=== PATIENT | female | born 1985 | race Caucasian/White ===

== ENCOUNTER 2017-01-14 18:18 | Emergency (ER) | payer BC, OTHER ==
--- NOTE | 2017-01-14 19:22 | EDM.PDOC ---
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 Over the last 2 days she's developed some spotting, today has become heavier vaginal bleeding. She is complaining of lower back cramping and right lower quadrant abdominal cramping. No fever, though she has felt chilled. Otherwise, no abdominal pain, nausea or vomiting. No chest pain, shortness of breath or difficulty breathing. She has felt constipated lately which is normal for her when she is . No diarrhea or blood in her stools. LC 1. Has not yet been seen by OB.] Review of systems: As per history of present illness and below otherwise all systems reviewed and negative. Past medical history: As per history of present illness and as reviewed below otherwise noncontributory. Surgical history: As per history of present illness and as reviewed below otherwise noncontributory. Social history: No reported history of drug or alcohol abuse. Family history: As per history of present illness and as reviewed below otherwise noncontributory. Physical exam: HEENT: Atraumatic, normocephalic. Lungs: Clear to auscultation, breath sounds equal bilaterally. Heart: S1S2, regular rate and rhythm. Abdomen: Bowel sounds are normoactiv. Abdome is soft, nondistended, nontender. No masses, guarding or rebound. Negative for costovertebral tenderness. Pelvis: Stable nontender. Genitourinary: Deferred. Rectal: Deferred. Extremities: Atraumatic, negative for cords or calf pain. Neurovascular unremarkable. Neuro: Awake, alert, oriented. Motor and sensory unremarkable throughout. Exam nonfocal. Diagnostics: [pelvic U/S, quantitative Hcg, qualitative Hcg, CBC, ABO/Rh, UA ] Impression: [viable twin , estimated to be 6 1/2 gestation] Plan: [Patient is advised of normal lab and the results of her ultrasound. Encouraged patient to follow up with an audioprosthologist in the next couple of days. Continue to monitor symptoms. Return to ER if worsening. She is in agreement with today' s plan. All of her questions are answered and concerns are addressed.] Definitive disposition and diagnosis as appropriate pending reevaluation and review of above. Low Back and Right Pelvic Pain Score (Numeric/FACES): 5 - Related Data Allergies Allergy/AdvReac Type Severity Reaction Status Date / Time amoxicillin [Amoxicillin] Allergy Rash Verified 01/14/17 18:45 Penicillins Allergy Cannot Verified 01/14/17 18:45 Remember Home Meds: Home Meds . [No Known Home Meds] 01/14/17 [History] Past Medical History - Past Health History Medical/Surgical History: Denies Medical/Surgical History Social & Family History - Family History Family Medical History: Noncontributory - Tobacco Use Smoking Status *Q: Never Smoker Years of Tobacco use: 3 Used Tobacco, but Quit: Yes Month Tobacco Last Used: 03/2013 Second Hand Smoke Exposure: No - Recreational Drug Use Recreational Drug Use: No ED ROS GENERAL - Review of Systems Review Of Systems: ROS reveals no pertinent complaints other than HPI. ED EXAM - Physical Exam Exam: See Below Course - Vital Signs Last Recorded V/S: Last Vital Signs Temp 98.1 F 01/14/17 21:18 Pulse 70 01/14/17 21:18 Resp 16 01/14/17 21:18 BP 112/70 01/14/17 21:18 Pulse Ox 97 01/14/17 21:18 - Orders/Labs/Meds Orders: Active Orders 24 hr Category Date Time Status OB 1st Tri Sgl 1st Gest [US] Stat Exams 01/14/17 18:53 Taken Labs: Laboratory Tests 01/14/17 01/14/17 01/14/17 Range/Units 18:43 18:43 19:00 WBC (4.0-11.0) K/uL RBC (4.30-5.90) M/uL Hgb (12.0-16.0) g/dL Hct (36.0-46.0) % MCV (80.0-98.0) fL MCH (27.0-32.0) pg MCHC (31.0-37.0) g/dL RDW Std Deviation (28.0-62.0) fl RDW Coeff of Dandy (11.0-15.0) % Plt Count (150-400) K/uL MPV (7.40-12.00) fL Neut % (Auto) (48.0-80.0) % Lymph % (Auto) (16.0-40.0) % [place] % (Auto) (0.0-15.0) % Eos % (Auto) (0.0-7.0) % Baso % (Auto) (0.0-1.5) % Neut # (Auto) (1.4-5.7) K/uL Lymph # (Auto) (0.6-2.4) K/uL [place] # (Auto) (0.0-0.8) K/uL Eos # (Auto) (0.0-0.7) K/uL Baso # (Auto) (0.0-0.1) K/uL Nucleated RBC % /100WBC Nucleated RBCs # K/uL HCG, Quant mIU/mL Urine Color YELLOW Urine Appearance CLEAR Urine pH 6.5 (5.0-8.0) Ur Specific [place] 1.010 (1.001-1.035) Urine Protein NEGATIVE (NEGATIVE) mg/dL Urine Glucose (UA) NEGATIVE (NEGATIVE) mg/dL Urine Ketones NEGATIVE (NEGATIVE) mg/dL Urine Occult Blood MODERATE (NEGATIVE) Urine Nitrite NEGATIVE (NEGATIVE) Urine Bilirubin NEGATIVE (NEGATIVE) Urine Urobilinogen 0.2 (<2.0) EU/dL Ur Leukocyte Esterase TRACE (NEGATIVE) Urine RBC 0-2 (0-2/HPF) Urine WBC 1-2 (0-5/HPF) Ur Epithelial Cells RARE (NONE-FEW) Urine Bacteria FEW (NEGATIVE) Urine HCG, Qual POSITIVE (NEGATIVE) Blood Type O POSITIVE 01/14/17 01/14/17 Range/Units 19:00 19:00 WBC 11.33 H (4.0-11.0) K/uL RBC 4.08 L (4.30-5.90) M/uL Hgb 13.3 (12.0-16.0) g/dL Hct 39.4 (36.0-46.0) % MCV 96.6 (80.0-98.0) fL MCH 32.6 H (27.0-32.0) pg MCHC 33.8 (31.0-37.0) g/dL RDW Std Deviation 42.5 (28.0-62.0) fl RDW Coeff of Dandy 12 (11.0-15.0) % Plt Count 254 (150-400) K/uL MPV 9.10 (7.40-12.00) fL Neut % (Auto) 73.7 (48.0-80.0) % Lymph % (Auto) 18.3 (16.0-40.0) % [place] % (Auto) 6.1 (0.0-15.0) % Eos % (Auto) 1.6 (0.0-7.0) % Baso % (Auto) 0.3 (0.0-1.5) % Neut # (Auto) 8.4 H (1.4-5.7) K/uL Lymph # (Auto) 2.1 (0.6-2.4) K/uL [place] # (Auto) 0.7 (0.0-0.8) K/uL Eos # (Auto) 0.2 (0.0-0.7) K/uL Baso # (Auto) 0.0 (0.0-0.1) K/uL Nucleated RBC % 0.0 /100WBC Nucleated RBCs # 0 K/uL HCG, Quant 96680.1 mIU/mL Urine Color Urine Appearance Urine pH (5.0-8.0) Ur Specific [place] (1.001-1.035) Urine Protein (NEGATIVE) mg/dL Urine Glucose (UA) (NEGATIVE) mg/dL Urine Ketones (NEGATIVE) mg/dL Urine Occult Blood (NEGATIVE) Urine Nitrite (NEGATIVE) Urine Bilirubin (NEGATIVE) Urine Urobilinogen (<2.0) EU/dL Ur Leukocyte Esterase (NEGATIVE) Urine RBC (0-2/HPF) Urine WBC (0-5/HPF) Ur Epithelial Cells (NONE-FEW) Urine Bacteria (NEGATIVE) Urine HCG, Qual (NEGATIVE) Blood Type Departure - Departure Time of Disposition: 21:07 Disposition: Home, Self-Care 01 Condition: Good Clinical Impression: Twin Qualifiers: Multiple gestation type: dichorionic and diamniotic Trimester: first trimester Qualified Code(s): O30.041 - Twin , dichorionic/diamniotic, first trimester - Discharge Information Instructions: Multiple Referrals: PCP,None [Primary Care Provider] - Forms: ED Department Discharge Additional Instructions: The following information is given to patients seen in the emergency department who are being discharged to home. This information is to outline your options for follow-up care. We provide all patients seen in our emergency department with a follow-up referral. The need for follow-up, as well as the timing and circumstances, are variable depending upon the specifics of your emergency department visit. If you don't have a primary care physician on staff, we will provide you with a referral. We always advise you to contact your personal physician following an emergency department visit to inform them of the circumstance of the visit and for follow-up with them and/or the need for any referrals to a consulting specialist. The emergency department will also refer you to a specialist when appropriate. This referral assures that you have the opportunity for follow-up care with a specialist. All of these measure are taken in an effort to provide you with optimal care, which includes your follow-up. Under all circumstances we always encourage you to contact your private physician who remains a resource for coordinating your care. When calling for follow-up care, please make the office aware that this follow-up is from your recent emergency room visit. If for any reason you are refused follow-up, please contact the [facility] emergency department at and asked to speak to the emergency department charge nurse. [facility] Primary care - Women's Health [address] [place] [id number] [facility] [address] [place] [id number] Call first thing Monday morning to schedule an appointment at the clinic listed above. You have been diagnosed with a twin . Return to ER as needed as discussed. - My Orders Last 24 Hours: My Active Orders 01/14/17 18:53 OB 1st Tri Sgl 1st Gest [US] Stat - Assessment/Plan Last 24 Hours: My Active Orders 01/14/17 18:53 OB 1st Tri Sgl 1st Gest [US] Stat
[2017-01-14 21:22] VITALS: BP 112/70
--- NOTE | 2017-01-16 12:32 | US ---
EXAM DATE: 01/14/17 PATIENT'S AGE: 31 Patient: FLORY PRICE Facility: [place], [place] Site . Site : 1985 Study: US OB Pelvis [id number]/12/2017 8:19:37 PM Ordering Physician: Doctor Robles Final Report: HISTORY: Vaginal bleeding, . TECHNIQUE: Transabdominal and transvaginal pelvic ultrasound. COMPARISON: No prior. FINDINGS: There is a living dichorionic, diamniotic twin gestation. - [place]-rump length of fetus A is 6.3 mm which correlates with a 6 week, 4 day gestation. DAFNE based on this measurement is 09/05/2017. heart rate 133 beats per minute. Normal-appearing yolk sac. - [place]-rump length of fetus B is 5.7 mm which correlates with a 6 week, 3 day gestation. heart rate is 129 beats per minute. Normal-appearing yolk sac. - There is no subchorionic hemorrhage. No adnexal mass. Both ovaries appear unremarkable. IMPRESSION: 1. Living dichorionic, diamniotic twin gestation. 2. No complication. Dictated by Bart Morrell MD @ 01/14/2017 8:41:04 PM Dictated by: Bart Morrell MD @ 01/14/2017 20:41:15 (Electronic Signature) Report Signed by Proxy. [facility]ATRIC CENTERAsa
== END 2017-01-14 21:18 | disposition home or self-care (01) ==
LOC: MW.ED 18:18
DX: O30.041 Twin pregnancy, dichorionic/diamniotic, first trimester (principal); M54.5 Low back pain; R10.31 Right lower quadrant pain; Z3A.08 8 weeks gestation of pregnancy; Z88.1 Allergy status to other antibiotic agents; Z88.0 Allergy status to penicillin
CPT/HCPCS: 36415; 76801; 76801-26; 81001; 81025; 84702; 85025; 86900; 86901; 99282; 99284-25

== ENCOUNTER 2020-12-29 13:10 | Emergency (ER) | payer SELFPAY ==
[2020-12-29] MEDS ORDERED: Sodium Chloride 0.9% 1,000 ML IV ONE (13:45)
[2020-12-29] MEDS ORDERED: Sodium Chloride 0.9% 10 ML Syringe FLUSH PRN (13:45)
[2020-12-29] MEDS ORDERED: Sodium Chloride 0.9% 2.5 ML Syringe FLUSH PRN (13:45)
--- NOTE | 2020-12-29 13:48 | EDM.PDOC ---
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 , LMP 11/02/20 no ultrasound yet. Located in lower abdomen, mostly in left, cramping sensation, but also a pulling/tighntess in right side. No vaginal bleeding but is having some discharge. Single partner, no concern for risk of STI. PMH: , anxiety PSH: none SOC: no tobacco - Related Data Allergies Allergy/AdvReac Type Severity Reaction Status Date / Time amoxicillin [Amoxicillin] Allergy Rash Verified 12/29/20 13:33 Penicillins Allergy Cannot Verified 12/29/20 13:33 Remember Home Meds: Home Meds . 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: Social & Family History - Family History Family Medical History: No Pertinent Family History - Tobacco Use Tobacco Use Status *Q: Never Tobacco User - Recreational Drug Use Recreational Drug Use: No ED ROS GENERAL - Review of Systems Review Of Systems: See Below Constitutional: Denies: Fever Respiratory: Denies: Shortness of Breath Cardiovascular: Denies: Chest Pain GI/Abdominal: Reports: Abdominal Pain ED EXAM - Physical Exam Exam: See Below General Appearance: Alert, WD/WN, No Apparent Distress Throat/Mouth: Normal Inspection Head: Atraumatic, Normocephalic Neck: Normal Inspection, Supple Respiratory/Chest: No Respiratory Distress Cardiovascular: Regular Rate, Rhythm GI/Abdominal Exam: Soft, Non-Tender, No Distention (Female) Exam: Normal External Exam, Vaginal Discharge (scant thin whitish/clear discharge), Other (os closed ). No: Products of Conception, Tissue Present in Cervix/Vagina Course - Vital Signs Last Recorded V/S: Last Vital Signs Temp 98.4 F 12/29/20 13:30 Pulse 96 12/29/20 13:30 Resp 16 12/29/20 13:30 BP 123/81 12/29/20 13:30 Pulse Ox 98 12/29/20 13:30 - Orders/Labs/Meds Orders: Active Orders 24 hr Category Date Time Status Sodium Chloride 0.9% [Saline Flush] Med 12/29/20 13:45 Active 10 ml FLUSH ASDIRECTED PRN Sodium Chloride 0.9% [Saline Flush] Med 12/29/20 13:45 Active 2.5 ml FLUSH ASDIRECTED PRN Saline Lock Insert [OM.PC] Stat Oth 12/29/20 13:45 Ordered Medication Orders Sodium Chloride (Sodium Chloride 0.9% 10 Ml Syringe) 10 ml FLUSH ASDIRECTED PRN PRN Reason: Keep Vein Open Last Admin: 12/29/20 13:57 Dose: 10 ml Documented by: PRAVEENA Sodium Chloride (Sodium Chloride 0.9% 2.5 Ml Syringe) 2.5 ml FLUSH ASDIRECTED PRN PRN Reason: Keep Vein Open Last Admin: 12/29/20 13:57 Dose: 2.5 ml Documented by: PRAVEENA Labs: Laboratory Tests 12/29/20 12/29/20 12/29/20 Range/Units 14:00 14:00 14:00 WBC 10.93 (4.0-11.0) K/uL RBC 4.05 L (4.30-5.90) M/uL Hgb 13.8 (12.0-16.0) g/dL Hct 39.0 (36.0-46.0) % MCV 96.3 (80.0-98.0) fL MCH 34.1 H (27.0-32.0) pg MCHC 35.4 (31.0-37.0) g/dL RDW Std Deviation 43.1 (28.0-62.0) fl RDW Coeff of Dandy 12 (11.0-15.0) % Plt Count 257 (150-400) K/uL MPV 9.00 (7.40-12.00) fL Neut % (Auto) 79.7 (48.0-80.0) % Lymph % (Auto) 12.4 L (16.0-40.0) % [place] % (Auto) 6.6 (0.0-15.0) % Eos % (Auto) 1.0 (0.0-7.0) % Baso % (Auto) 0.3 (0.0-1.5) % Neut # (Auto) 8.7 H (1.4-5.7) K/uL Lymph # (Auto) 1.4 (0.6-2.4) K/uL [place] # (Auto) 0.7 (0.0-0.8) K/uL Eos # (Auto) 0.1 (0.0-0.7) K/uL Baso # (Auto) 0.0 (0.0-0.1) K/uL Nucleated RBC % 0.0 /100WBC Nucleated RBCs # 0 K/uL Sodium 134 L (136-145) mmol/L Potassium 3.9 (3.5-5.1) mmol/L Chloride 100 (98-107) mmol/L Carbon Dioxide 23.6 (21.0-32.0) mmol/L BUN 14 (7.0-18.0) mg/dL Creatinine 0.9 (0.6-1.0) mg/dL Est Cr Clr Drug Dosing 72.17 mL/min Estimated GFR (MDRD) > 60.0 ml/min Glucose 93 (74-106) mg/dL Calcium 9.0 (8.5-10.1) mg/dL Total Bilirubin 0.3 (0.2-1.0) mg/dL AST 26 (15-37) IU/L ALT 29 (14-63) IU/L Alkaline Phosphatase 71 (46-116) U/L Total Protein 7.4 (6.4-8.2) g/dL Albumin 4.0 (3.4-5.0) g/dL Globulin 3.4 (2.6-4.0) g/dL Albumin/Globulin Ratio 1.2 (0.9-1.6) HCG, Quant 77769.0 mIU/mL Urine Color Urine Appearance Urine pH (5.0-8.0) Ur Specific [place] (1.001-1.035) Urine Protein (NEGATIVE) mg/dL Urine Glucose (UA) (NEGATIVE) mg/dL Urine Ketones (NEGATIVE) mg/dL Urine Occult Blood (NEGATIVE) Urine Nitrite (NEGATIVE) Urine Bilirubin (NEGATIVE) Urine Urobilinogen (<2.0) EU/dL Ur Leukocyte Esterase (NEGATIVE) Farnaz species DNA (NEGATIVE) Gardnerella DNA Probe (NEGATIVE) Trichomonas DNA Probe (NEGATIVE) Blood Type 12/29/20 12/29/2012/29/21 Range/Units 14:00 14:00 15:37 WBC (4.0-11.0) K/uL RBC (4.30-5.90) M/uL Hgb (12.0-16.0) g/dL Hct (36.0-46.0) % MCV (80.0-98.0) fL MCH (27.0-32.0) pg MCHC (31.0-37.0) g/dL RDW Std Deviation (28.0-62.0) fl RDW Coeff of Dandy (11.0-15.0) % Plt Count (150-400) K/uL MPV (7.40-12.00) fL Neut % (Auto) (48.0-80.0) % Lymph % (Auto) (16.0-40.0) % [place] % (Auto) (0.0-15.0) % Eos % (Auto) (0.0-7.0) % Baso % (Auto) (0.0-1.5) % Neut # (Auto) (1.4-5.7) K/uL Lymph # (Auto) (0.6-2.4) K/uL [place] # (Auto) (0.0-0.8) K/uL Eos # (Auto) (0.0-0.7) K/uL Baso # (Auto) (0.0-0.1) K/uL Nucleated RBC % /100WBC Nucleated RBCs # K/uL Sodium (136-145) mmol/L Potassium (3.5-5.1) mmol/L Chloride (98-107) mmol/L Carbon Dioxide (21.0-32.0) mmol/L BUN (7.0-18.0) mg/dL Creatinine (0.6-1.0) mg/dL Est Cr Clr Drug Dosing mL/min Estimated GFR (MDRD) ml/min Glucose (74-106) mg/dL Calcium (8.5-10.1) mg/dL Total Bilirubin (0.2-1.0) mg/dL AST (15-37) IU/L ALT (14-63) IU/L Alkaline Phosphatase (46-116) U/L Total Protein (6.4-8.2) g/dL Albumin (3.4-5.0) g/dL Globulin (2.6-4.0) g/dL Albumin/Globulin Ratio (0.9-1.6) HCG, Quant mIU/mL Urine Color YELLOW Urine Appearance CLEAR Urine pH 6.0 (5.0-8.0) Ur Specific [place] 1.020 (1.001-1.035) Urine Protein NEGATIVE (NEGATIVE) mg/dL Urine Glucose (UA) NEGATIVE (NEGATIVE) mg/dL Urine Ketones 15 H (NEGATIVE) mg/dL Urine Occult Blood NEGATIVE (NEGATIVE) Urine Nitrite NEGATIVE (NEGATIVE) Urine Bilirubin NEGATIVE (NEGATIVE) Urine Urobilinogen 0.2 (<2.0) EU/dL Ur Leukocyte Esterase NEGATIVE (NEGATIVE) [place]arn[place] species DNA NEGATIVE (NEGATIVE) [place]rella DNA Probe NEGATIVE (NEGATIVE) Trichomonas DNA Probe NEGATIVE (NEGATIVE) Blood Type O POSITIVE Meds: Medications Generic Name Dose Route Start Last Admin Trade Name Freq PRN Reason Stop Dose Admin Sodium Chloride 10 ml 12/29/20 13:45 12/29/20 13:57 Sodium Chloride 0.9% 10 Ml Syringe FLUSH 10 ml ASDIRECTED PRN Administration Keep Vein Open Sodium Chloride 2.5 ml 12/29/20 13:45 12/29/20 13:57 Sodium Chloride 0.9% 2.5 Ml Syringe FLUSH 2.5 ml ASDIRECTED PRN Administration Keep Vein Open Discontinued Medications Generic Name Dose Route Start Last Admin Trade Name Freq PRN Reason Stop Dose Admin Sodium Chloride 1,000 mls @ 999 mls/hr 12/29/20 13:45 12/29/20 13:57 Normal Saline IV 12/29/20 14:45 999 mls/hr .Bolus ONE Administration - Re-Assessments/Exams Free Text/Narrative Re-Assessment/Exam: 12/29/20 16:15 results discussed with patient and need for followup. Discussed return instructions. She agrees with plan. 12/29/20 16:[address] Perez discussed with patient. She agrees with plan. Departure - Departure Time of Disposition: 16:17 Disposition: Home, Self-Care 01 Clinical Impression: Intrauterine , Subchorionic hematoma in first trimester - Discharge Information Instructions: First Trimester of , [place], Care, How a Baby Grows During , Questions to Ask Your Health Care Provider During , Subchorionic Hematoma Referrals: Ivana Perez MD [Physician] - 2 Days Forms: ED Department Discharge Sepsis Event Note (ED) - Evaluation Sepsis Screening Result: No Definite Risk - Focused Exam Vital Signs: Vital Signs Temp Pulse Resp BP Pulse Ox 12/29/20 13:30 98.4 F 96 16 123/81 98 ED Communication - ED Communication Date/Time Date: 12/29/20 Time Called: 16:16 - Discussed Case With (1) Discussed Case With (1): Outpatient Provider Person/s Notified (1): Ivana Perez (case discussed, agrees with plan for outpatient followup, will followup the US results ( tachycardia). Will arrange for outpatient f/u in their office. ) - My Orders Last 24 Hours: My Active Orders 12/29/20 13:45 Sodium Chloride 0.9% [Saline Flush] 10 ml FLUSH ASDIRECTED PRN Sodium Chloride 0.9% [Saline Flush] 2.5 ml FLUSH ASDIRECTED PRN Saline Lock Insert [OM.PC] Stat - Assessment/Plan Last 24 Hours: My Active Orders 12/29/20 13:45 Sodium Chloride 0.9% [Saline Flush] 10 ml FLUSH ASDIRECTED PRN Sodium Chloride 0.9% [Saline Flush] 2.5 ml FLUSH ASDIRECTED PRN Saline Lock Insert [OM.PC] Stat
--- NOTE | 2020-12-29 15:09 | US ---
HISTORY: Cramping. COMPARISON: None. TECHNIQUE: Pelvic ultrasound. Endovaginal imaging the pelvis was obtained to better evaluate the adnexa and endometrial complex. Color/spectral Doppler was performed to evaluate for ovarian torsion. FINDINGS: There is a single living intrauterine embryo. The intrauterine gestational sac and yolk sac are normal. Cardiac activity by M-mode ultrasound is 181 beats per minute. There is no perigestational hematoma. The left ovary measures 1.8 x 2.5 x 2.3 cm. The right ovary measures 1.2 x 2.5 x 1.9 cm. There is no adnexal mass. No evidence on grayscale imaging, or color/spectral Doppler, for ovarian torsion. The crown-rump length is 14.1 mm. This corresponds to a gestational age of 7 weeks, 6 days. Mean sac diameter is 2.93 cm. This corresponds to gestational age of 8 weeks, 2 days. The ultrasound gestational age is 8 weeks, 1 day, corresponding to an ultrasound DAFNE of 08/09/2021. IMPRESSION: 1. Single living intrauterine embryo, with an ultrasound gestational age today of 8 weeks, 1 day, corresponding to an ultrasound DAFNE of 08/09/2021. 2. Borderline tachycardia. This is amenable to sonographic/clinical followup. Dictated by Ant Juraez MD @ 12/29/2020 3:08:[address] Ant Juarez @ Dec 29 2020 3:08PM
[2020-12-29 15:34] LABS: BLOOD UREA NITROGEN,BUN 14 mg/dL (7.0-18.0); CARBON DIOXIDE,CO2 23.6 mmol/L (21.0-32.0); CHLORIDE,CL 100 mmol/L (98-107); GLUCOSE RANDOM 93 mg/dL (74-106); POTASSIUM,K 3.9 mmol/L (3.5-5.1); SODIUM,NA 134 mmol/L (136-145)
[2020-12-29 16:45] VITALS: BP 124/74; PULSE 75
== END 2020-12-29 16:47 | disposition home or self-care (01) ==
LOC: MW.ED 13:10
DX: O20.8 Other hemorrhage in early pregnancy (principal); Z88.0 Allergy status to penicillin; Z3A.08 8 weeks gestation of pregnancy
CPT/HCPCS: 36415; 76801; 80053; 81003; 84702; 85025; 86900; 86901; 87480; 87510; 87660; 99284; J7030

== ENCOUNTER 2023-01-30 08:20 | Emergency (ER) | payer BC ==
[2023-01-30] MEDS ORDERED: Sodium Chloride 0.9% 10 ML Syringe FLUSH PRN ×2 (09:12)
[2023-01-30] MEDS ORDERED: Sodium Chloride 0.9% 2.5 ML Syringe FLUSH PRN ×2 (09:12)
[2023-01-30] MEDS ORDERED: Sodium Chloride 0.9% 1,000 ML IV ONE (09:12)
[2023-01-30 09:37] LABS: BASOPHILS PERCENT AUTO 0.7 % (0.0-1.5); EOSINOPHILS ABSOLUTE AUTO 0.2 K/uL (0.0-0.7); EOSINOPHILS PERCENT AUTO 2.5 % (0.0-7.0); HEMATOCRIT 39.5 % (36.0-46.0); HEMOGLOBIN 13.7 g/dL (12.0-16.0); MEAN CORPUSCULAR HEMOGLOBIN 34.9 pg (27.0-32.0); MEAN CORPUSCULAR HGB CONC 34.7 g/dL (31.0-37.0); MEAN CORPUSCULAR VOLUME 100.8 fL (80.0-98.0); MONOCYTES ABSOLUTE AUTO 0.5 K/uL (0.0-0.8); MONOCYTES PERCENT AUTO 7.6 % (0.0-15.0); NEUTROPHILS ABSOLUTE AUTO 4.5 K/uL (1.4-5.7); NEUTROPHILS PERCENT AUTO 73.2 % (48.0-80.0); NRBC ABSOLUTE 0 K/uL; PLATELET COUNT,PLT 232 K/uL (150-400); RED BLOOD CELL COUNT 3.92 M/uL (4.30-5.90); WHITE BLOOD CELL COUNT,WBC 6.07 K/uL (4.0-11.0)
[2023-01-30 10:04] LABS: APPEARANCE,URINE CLEAR; BILIRUBIN,URINE NEGATIVE (NEGATIVE); COLOR,URINE YELLOW; GLUCOSE,URINE NEGATIVE (NEGATIVE); KETONES,URINE NEGATIVE (NEGATIVE); LEUKOCYTE ESTERASE,URINE NEGATIVE (NEGATIVE); NITRITE,URINE NEGATIVE (NEGATIVE); OCCULT BLOOD,URINE NEGATIVE (NEGATIVE); PH,URINE 7.5 (5.0-8.0); PROTEIN,URINE NEGATIVE (NEGATIVE); UROBILINOGEN,URINE 0.2 EU/dL (<2.0)
[2023-01-30 10:05] LABS: INR 1.01 (0.86-1.11)
[2023-01-30 10:37] LABS: A/G RATIO 1.2 (0.9-1.6); ALBUMIN 3.8 g/dL (3.4-5.0); BILIRUBIN TOTAL 0.4 mg/dL (0.2-1.0); CARBON DIOXIDE,CO2 26.2 mmol/L (21.0-32.0); CREATININE 0.6 mg/dL (0.6-1.0); EST CRCL DRUG DOSING (CG) 106.19 mL/min; POTASSIUM,K 4.4 mmol/L (3.5-5.1); PROTEIN TOTAL,TP 7.1 g/dL (6.4-8.2)
[2023-01-30 11:49] VITALS: BP 131/83; PULSE 82
== END 2023-01-30 11:53 | disposition home or self-care (01) ==
LOC: MW.ED 08:20
DX: O20.0 Threatened abortion (principal); Z67.40 Type O blood, Rh positive; Z79.899 Other long term (current) drug therapy; Z88.0 Allergy status to penicillin; Z88.1 Allergy status to other antibiotic agents; Z3A.01 Less than 8 weeks gestation of pregnancy
CPT/HCPCS: 36415; 76817; 80053; 81003; 84702; 85025; 85610; 86900; 86901; 99284; J3490; J7030; 99283